=== PATIENT | female | born 1975 | race Caucasian/White ===

== ENCOUNTER 2022-05-03 16:28 | Emergency (ER) | payer OTHER, SELFPAY ==
--- NOTE | 2022-05-03 19:13 | DI.RAD.S_ITS ---
PROCEDURE: XR TIBIA FIBULA LT 2V INDICATIONS: Fall, laceration, ?fx, ?foreign body TECHNIQUE: 2 views of the tibia and fibula were acquired. COMPARISON: None. FINDINGS: Bones: No fractures or dislocations. No suspicious bony lesions. Soft tissues: No suspicious soft tissue calcifications or masses. No radiopaque foreign body. IMPRESSION: 1. No acute osseous abnormalities. 2. No radiopaque foreign body. Dictated by: Noe Cohen M.D. on 05/03/2022 at 20:01 Approved by: Noe Cohen M.D. on 05/03/2022 at 20:02
--- NOTE | 2022-05-03 19:24 | ED_ITS ---
HPI - Wound/Laceration <Ovi Martin PA-C - Last Filed: 05/03/22 20:29> General Chief Complaint: Wound/Laceration Stated Complaint: LT. Leg laceration Time Seen by Provider: 05/03/22 18:35 Source: patient Mode of arrival: Ambulatory History of Present Illness HPI narrative: 47-year-old female with no reported past medical history presents to the ED status post a laceration sustained this morning. Patient states that she walked onto a boat for work, was unable to see that the engine door was opened since she was carrying a big box in front of her. She foot slipped into the opening, causing her to bump her martinez, causing the laceration. Patient states she has been able to bear weight and walk. Patient's last tetanus was in 2016. Patient denies numbness, tingling, weakness. Related Data Allergies Allergy/AdvReac Type Severity Reaction Status Date / Time No Known Drug Allergies Allergy Verified 05/03/22 18:29 Review of Systems <Ovi Martin PA-C - Last Filed: 05/03/22 20:29> Review of Systems ROS Unobtainable: All systems reviewed & are unremarkable except as noted in HPI and below Constitutional Constitutional: Denies chills, Denies fatigue, Denies fever(s), Denies frequent falls, Denies lethargy and Denies weakness Eyes Eyes: Denies change in vision, Denies eye discharge, Denies irritation and Denies loss of vision ENT Ears, Nose, Mouth, and Throat: Denies change in voice, Denies dizziness, Denies neck pain, Denies sore throat and Denies throat swelling Cardiovascular Cardiovascular: Denies chest pain, Denies irregular heart rhythm, Denies lightheadedness, Denies palpitations, Denies dyspnea, Denies dyspnea on exertion and Denies orthopnea Respiratory Respiratory: Denies cough, Denies dyspnea, Denies dyspnea on exertion and Denies wheezing Gastrointestinal Gastrointestinal: Denies abdominal pain, Denies change in bowel habits, Denies diarrhea, Denies nausea and Denies vomiting Genitourinary Genitourinary: Denies hematuria, Denies flank pain, Denies urinary incontinence and Denies urinary urgency Musculoskeletal Musculoskeletal: Denies back pain, Denies muscle weakness, Denies neck pain, Denies numbness and Denies tingling Comments: Full range of motion. Integumentary/Breasts Skin/Breast: Denies pruritus, Denies erythema, Denies rash and Denies wounds Comments: Laceration on left martinez Neurologic Neurologic: Denies behavioral changes, Denies confusion, Denies dizziness, Denies frequent falls, Denies loss of vision, Denies numbness, Denies tingling and Denies weakness Comments: No numbness, tingling, weakness. Psychiatric Psychiatric: Denies anxiety, Denies behavioral changes, Denies confusion, Denies depression, Denies homicidal ideation and Denies suicidal ideation Endocrine Endocrine: Denies fatigue, Denies flushing and Denies palpitations Hematologic/Lymphatic Hematologic/Lymphatic: Denies easy bruising Allergic/Immunologic Allergic/Immunologic: Denies urticaria, Denies throat swelling and Denies wheezing Exam <ARIELA Jones Last Filed: 05/03/22 20:29> Narrative Exam Narrative: Const General:?cooperative, healthy appearing and comfortable [facility] Head:?normal to inspection Ears:?hearing grossly normal bilaterally Nose:?external nose normal Face and sinus:?normal facial exam and sinuses nontender Mouth:?oral mucosae normal Throat:?posterior oropharynx normal Eyes General:?appearance normal, both eyes and all related structures Neck Neck:?normal visual inspection and no lymphadenopathy noted Resp Effort & Inspection:?normal respiratory effort Auscultation:?clear to auscultation bilaterally Cardio Rate:?regular rate Rhythm:?regular rhythm Integumentary 6 cm vertical, linear laceration of mid left martinez. Two other abrasions surrounding this laceration. Bleeding controlled with pressure. Musculoskeletal Tenderness to palpation of anterior left martinez. No deformities noted. Neuro General:?patient alert, patient awake and patient oriented x3; full range of motion. Neurovascularly intact. Gait normal. Procedures <ARIELA Jones Last Filed: 05/03/22 20:29> Laceration Repair Laceration 1: Site: lower extremity Side (If applicable): left Size (cm): 5 Description: linear Local Anesthetic: lidocaine 2% Amount of anesthesia used (mL): 3 Pre-repair: wound explored, irrigated extensively and deep structures intact Skin layer closed with: nylon Skin layer suture size: 4-0 Number of sutures: 6 Technique: simple, interrupted Course <ARIELA Jones Last Filed: 05/03/22 20:29> Orders Ordered: ED Orders 05/03/22 19:13 XR tibia fibula LT 2V Stat Discontinued Medications Acetaminophen (Acetaminophen 325 Mg Tablet) 650 mg PO NOW ONE Stop: 05/03/22 18:30 Last Admin: 05/03/22 19:53 Dose: 650 mg Documented By: OSMAR Bacitracin (Bacitracin Oint 0.9 Gm Pckt) 1 applic TOP NOW ONE Stop: 05/03/22 20:23 Ibuprofen (Ibuprofen 400 Mg Tablet) 400 mg PO NOW ONE Stop: 05/03/22 18:29 Last Admin: 05/03/22 19:53 Dose: 400 mg Documented By: OSMAR <Fermin Anthony DO - Last Filed: 05/04/22 02:52> Orders Ordered: ED Orders 05/03/22 19:13 XR tibia fibula LT 2V Stat Discontinued Medications Acetaminophen (Acetaminophen 325 Mg Tablet) 650 mg PO NOW ONE Stop: 05/03/22 18:30 Last Admin: 05/03/22 19:53 Dose: 650 mg Documented By: OSMAR Bacitracin (Bacitracin Oint 0.9 Gm Pckt) 1 applic TOP NOW ONE Stop: 05/03/22 20:23 Ibuprofen (Ibuprofen 400 Mg Tablet) 400 mg PO NOW ONE Stop: 05/03/22 18:29 Last Admin: 05/03/22 19:53 Dose: 400 mg Documented By: OSMAR MDM - Wound/Laceration <Ovi Martin PA-C - Last Filed: 05/03/22 20:29> Imaging Data Extremity x-ray #1: Radiologist's Impression: PROCEDURE:? XR TIBIA FIBULA LT 2V ? INDICATIONS:? Fall, laceration, ?fx, ?foreign body ? TECHNIQUE:? 2 views of the tibia and fibula were acquired.? ? COMPARISON:? None. ? FINDINGS:? ? Bones:? No fractures or dislocations.? No suspicious bony lesions.? ? Soft tissues:? No suspicious soft tissue calcifications or masses.? No radiopaque foreign body. ? IMPRESSION:? ? 1. No acute osseous abnormalities. 2. No radiopaque foreign body.? ? ? Dictated by: Noe Cohen M.D. on 05/03/2022 at 20:01 ? ? Approved by: Noe Cohen M.D. on 05/03/2022 at 20:02 ? MDM Narrative Medical decision making narrative: 47-year-old female with no reported past medical history presents to the ED status post a laceration sustained this morning. Concern for fracture/dislocation versus laceration. Will obtain x-rays. Will repair laceration with sutures. X-ray without acute findings. Laceration repaired with sutures, patient tolerated well. Sutures will need to be removed in 7-10 days. Infection prevention, signs of infection, wound care discussed with patient. ED return precautions discussed with patient. Patient verbalized understanding. Discharge Plan Departure Patient Disposition: Home Clinical Impression: Laceration Instructions: DI for Laceration Repair Activity Restrictions/Additional Instructions: You were evaluated in the ED today for a laceration sustained at work. Your laceration was repaired with sutures. You will need the sutures removed in 7-10 days, for which you can go to a urgent care or your PCP or return to the ED. x- rays of your leg showed no fractures or dislocations or foreign bodies. Please watch for signs of infection including redness, warmth, swelling, discharge, pain. Return to the ED if you notice any signs of infection. Visit Report Forms: Patient Portal/API <Fermin Anthony DO - Last Filed: 05/04/22 02:52> Cosign ED Attending Cosignature Attestation: I was immediately available in the department for consultation. This docum entation has been reviewed and I agree with assessment and plan. Supervised by Fermin Anthony DO
[2022-05-03] MEDS: IBUPROFEN 400 MG TABLET PO (19:53)
[2022-05-03] MEDS: ACETAMINOPHEN 325 MG TABLET 650 MG PO (19:53)
== END 2022-05-03 20:39 | disposition home or self-care (01) ==
PROVIDERS: Emergency Provider Student in an Organized Health Care Education/Training Program
DX: S81.812A Laceration without foreign body, left lower leg, initial encounter (principal); W01.10XA Fall on same level from slipping, tripping and stumbling with subsequent striking against unspecified object, initial encounter
CPT/HCPCS: 12002; 73590; 99283